=== PATIENT | female | born 2000 | race Caucasian/White ===

== ENCOUNTER → 2020-12-01 12:25 | Outpatient (CLI) | payer OTHER, SELFPAY ==
[2020-12-01 13:47] LABS: Absolute Lymphocyte Count 1.55 X10^3/uL (0.83-4.51); Absolute Neutrophil Count 6.3 X10^3/uL (2.0-7.7); Basophil# 0.02 X10^3/uL; Basophil% 0.2 % (0-1); Eosinophil# 0.01 X10^3/uL; Eosinophils% 0.1 % (0-5); Lymphocyte # 1.55 X10^3/ul (4.0); Lymphocyte % 18.4 % (19-41); Mean Corp Hgb Conc 33.3 g/dL (32-36); Mean Corpuscular Hgb 30.6 pg (27.0-32.0); Mean Corpuscular Volume 91.8 fL (81-99); Mean Platelet Vol. 11.6 fl (6.2-12.0); Monocyte# 0.52 X10^3/uL; Monocyte% 6.2 % (0-10); NRBC Flagged by Analyzer 0 % (0-5); Neutrophil # 6.29 X10^3/uL (2.7-7.7); Neutrophil % 74.9 % (47-70); Platelet Count 119 K/mm3 (150-450); RBC Distribution Width CV 12.5 % (11.6-14.6); RBC Distribution Width SD 41.8 fl (35.1-43.9); White Blood Count 8.4 K/mm3 (4.4-11.0)
[2020-12-01 14:49] LABS: HIV - WCH Non-Reactive (Nonreactive); Hepatitis B Surface Antigen Non-Reactive (Nonreactive); Hepatitis C Antibody Non-Reactive (Nonreactive); Rubella IgG Reactive (Nonreactive); Syphilis Antibodies Non-reactive
== END ==
PROVIDERS: PCP Nurse Practitioner Family; Referring Provider Student in an Organized Health Care Education/Training Program; Visit Provider Student in an Organized Health Care Education/Training Program
DX: Z34.81 Encounter for supervision of other normal pregnancy, first trimester (principal)
CPT/HCPCS: 85025; 86703; 86762; 86780; 86803; 87086; 87088; 87340

== ENCOUNTER → 2021-04-10 09:30 | Outpatient (CLI) | payer OTHER, MEDICAID, SELFPAY ==
[2021-04-10 10:35] LABS: Hematocrit 40.2 % (37-47); Mean Corp Hgb Conc 32.3 g/dL (32-36); Mean Corpuscular Hgb 31.9 pg (27.0-32.0); Mean Corpuscular Volume 98.5 fL (81-99); Mean Platelet Vol. 11.8 fl (6.2-12.0); POSITIVE COUNT YES; Platelet Count 79 K/mm3 (150-450); RBC Distribution Width CV 13.2 % (11.6-14.6); RBC Distribution Width SD 47.4 fl (35.1-43.9); Red Blood Count 4.08 M/mm3 (4.2-5.4); White Blood Count 7.1 K/mm3 (4.4-11.0)
[2021-04-10 10:40] LABS: Scan Indicated on CBC? Y/N YES- FLAGS NOTED
[2021-04-10 10:47] LABS: Vitamin B12 340 pg/mL (211-911)
[2021-04-10 11:27] LABS: Ferritin 11 ng/mL (8-252); Glucose Challenge Gest 1H 50g 72 mg/dL (70-140)
== END ==
LOC: WOBLAB 09:31
PROVIDERS: PCP Nurse Practitioner Family; Visit Provider Obstetrics & Gynecology
DX: Z34.82 Encounter for supervision of other normal pregnancy, second trimester (principal)
CPT/HCPCS: 36415; 82607; 82728; 82746; 82950; 85027

== ENCOUNTER 2021-05-31 17:47 | Emergency (ER) | payer OTHER, MEDICAID, SELFPAY ==
[2021-05-31 17:48] VITALS: BP 131/80; PULSE 89; RESP 18; TEMP 36.1; O2SAT 99; BMI 32.3
--- NOTE | 2021-05-31 18:11 | ED.VIS.LOWEX ---
HPI History of Present Illness Chief Complaint: Lower Extremity Injury Detail of Chief Complaint: Redness and discomfort no injury. Informant: patient Occured/Mechanism Mechanism/Context: No injury Onset/Context/Timing Onset: Days Context: Gradual Onset Timing: Continuous Current Severity: Mild Maximum Severity: Mild Associated Symptoms Associated Symptoms: Negative for Parasthesia, Weakness and Loss of Funtion Narrative Narrative: 21-year-old female 32 weeks. Complaining of a mild redness and discomfort left lower leg below the knee on the medial aspect. No prior history. No fall or trauma. No history of DVT or PE. Other than being she does not smoke, she has been on control, she is had no travel, surgery nor hospitalization. No hemoptysis or chest pain. No family history of clotting problems. She does shave her legs. The redness is mildly tender. She denies any fever or chills. Prior similar symptoms: No Recent Illness/Hospitalization: No PFSH PFSH Medical History (Updated 05/31/21 @ 18:[address] Manuel Garcia MD) DVT (deep venous thrombosis) Medical History no medical history no medical history Home Medications cephalexin 500 mg PO Q6H 7 Days #28 cap 05/31/21 [Rx Last Taken Unknown] Allergy/AdvReac Type Severity Reaction Status Date / Time No Known Allergies Allergy Verified 05/31/21 17:49 Social History Smoking Status: Never smoker ROS ROS ED ROS Narrative Denies. Review of Systems ROS Unobtainable: Denies due to encephalopathy Constitutional Constitutional ED: Denies chills or fever(s) Eyes Eyes: Denies change in vision ENT ENT ED: Denies ear pain Cardiovascular Cardiovascular: Denies chest pain Respiratory/Chest Respiratory/Chest: Denies cough or dyspnea Gastrointestinal Gastrointestinal: Denies abdominal pain Genitourinary Genitourinary ED: Denies dysuria Musculoskeletal Musculoskeletal: Denies myalgias Integumentary Reports rash Neurologic Neurologic: Denies headache(s) Psychiatric Psychiatric: Denies depression Endocrine Endocrinology: Denies polyuria Hematologic/Lymphatic Hematologic/Lymphatic: Denies easy bruising Allergic/Immunologic Allergic/Immunologic ED: Denies urticaria EXAM Physical Exam Narrative Exam Narrative: I am pleased female no acute distress vital signs stable afebrile. Pulse ox 9% on room air no signs hypoxia. HEENT exam unremarkable. Lungs clear to auscultation bilaterally. Heart regular rhythm no murmur. Abdomen soft nondistended normal bowel sounds no peritoneal signs. Gravid nontender uterus. Moving all 4 extremities. No edema no cords. Left lower leg below the knee medial lower leg shows an area about 2 inches x 2 inches of redness is mildly tender. This could be an early cellulitis. I do not think it is a cord. There is no edema. Both lower extremities are neurovascular intact. There is no lymphangitic streaking. There is no inguinal lymphadenopathy. Otherwise exam normal. Const Vital Signs: 05/31/21 17:48 Temperature 97 F L Temperature Source Temporal Pulse Rate 89 Respiratory Rate 18 Blood Pressure 131/80 H Blood Pressure Mean 97 Pulse Ox 99 Positive well nourished and well developed; Negative for obese, cachectic, contractures or unkempt General Appearance ED: well developed and NAD; Negative for unkempt, cachectic or contractures Nutritional Appearance: Negative for cachectic or obese HEENT Reports moist mucous membranes normocephalic and atraumatic Eyes PERRL Neck full ROM and supple Thyroid: Negative for tender Chest Wall inspection of chest normal and palpation of chest normal Resp normal respiratory effort and clear to auscultation bilaterally Cardio regular rate, regular rhythm, S1 normal heart sound, S2 normal heart sound and no murmurs GI non-tender, non-distended and no masses GI Narrative: Gravid nontender uterus. Auscultation: normoactive bowel sounds Palpation: soft; Negative for tender, guarding or rebound tenderness present Back/Spine no CVA tenderness Extremity normal to inspection Extremity Narrative: Except left leg below the knee proximal medial lower leg there is an area of redness approximately 2 inches x 2 inches. Mildly tender. No quarter edema. No lymphangitic streaking. No inguinal lymphadenopathy. This does appear to be a cellulitis. Neuro oriented x3 and moves all extremities Sensorium / Orientation: alert, oriented to person, oriented to place and oriented to time; Negative for orientation impaired, lethargic or stuporous Motor Exam: strength 5/5 throughout Psych mental status grossly normal Appearance: Negative for unkempt Skin no wounds Lesions: no lesions MDM MDM MDM Narrative Medical decision making narrative: Healthy female 32 weeks with left lower leg pain and redness. Clinically this is a very mild 2 inch x 2 inch cellulitis. I think is very unlikely this is a DVT or only risk factors for . Noninvasive study will be ordered for tomorrow when they are in-house. She will be started on Keflex 4 times a day. Follow-up with your PERSONAL CARER. Discharge Plan Triage Chief Complaint: Lower Extremity Injury ED Provider: Manuel Garcia Dx/Rx/DC Orders Clinical Impression: Cellulitis Instructions: Cellulitis Prescriptions: New cephalexin 500 mg capsule 500 mg PO Q6H 7 Days Qty: 28 RF: 0 Primary Care Provider: Kelsi Rosenthal NP Referrals: Kelsi Rosenthal NP, BEHAVIORAL INTERVENTION SPECIALIST-[facility] [Primary Care Provider] - As Needed Activity Restrictions/Additional Instructions: Keflex, the antibiotic, 1 pill 4 times a day till gone. Tylenol for pain. [facility] lab will call you tomorrow to set you up for noninvasive study. If you do not hear from them before noon call the ER. Tell them you are supposed to have an ultrasound of your left lower leg to be evaluated for possible blood clot. Most likely this is an early skin infection called cellulitis. Putting you on antibiotic. Follow-up with your PERSONAL CARER as needed. Disposition Disposition: Home, Self Care
[2021-05-31] MEDS: Cephalexin 250 MG Capsule 500 MG PO (18:20)
== END 2021-05-31 18:27 | disposition home or self-care (01) ==
LOC: ED 18:26
PROVIDERS: Emergency Provider Emergency Medicine; PCP Nurse Practitioner Family
DX: O98.813 Other maternal infectious and parasitic diseases complicating pregnancy, third trimester (principal); L03.116 Cellulitis of left lower limb; Z3A.32 32 weeks gestation of pregnancy
CPT/HCPCS: 99283

== ENCOUNTER → 2021-06-01 10:36 | Outpatient (CLI) | payer OTHER, MEDICAID, SELFPAY ==
--- NOTE | 2021-06-01 10:38 | VDLE_ITS ---
Reason For Study: Pain Procedure LEFT This is a venous duplex using B-mode, color GSV is normal. flow and spectral Doppler. CFV is compressible, spontaneous, phasic, Exam performed in department. competent, and demonstrates normal A preliminary report was called and/or faxed augmentation. to PCP: [facility] and OB-SECURITY COMPLIANCE SPECIALIST: Chacorta Mccabe. FV is compressible, spontaneous, phasic, Patient seen in ED 05/31/2021, scanned as competent and demonstrates normal next day exam. augmentation. POP V is compressible, spontaneous, phasic, competent and demonstrates normal augmentation. T/P Trunk is compressible. PTV is compressible. LT PerV is compressible. VL/Venous Duplex US, Unilateral Interpretation Summary There is no evidence of left lower extremity deep vein thrombosis. Left great s aphenous vein appears patent and compressible segmentally. Ordering Physician: Manuel Garcia Referring Physician: Kelsi Rosenthal Performed By: Unique Hong RVT
== END ==
PROVIDERS: PCP Nurse Practitioner Family; Referring Provider Emergency Medicine; Visit Provider Emergency Medicine
DX: O26.899 Other specified pregnancy related conditions, unspecified trimester (principal); M79.605 Pain in left leg; Z3A.00 Weeks of gestation of pregnancy not specified
CPT/HCPCS: 93971

== ENCOUNTER → 2021-06-18 16:03 | Outpatient (CLI) | payer OTHER, MEDICAID, SELFPAY ==
[2021-06-18 16:52] LABS: Hematocrit 38.6 % (37-47); Hemoglobin 12.5 g/dL (12.0-15.0); Mean Corp Hgb Conc 32.4 g/dL (32-36); Mean Corpuscular Hgb 31.3 pg (27.0-32.0); Mean Corpuscular Volume 96.7 fL (81-99); Mean Platelet Vol. 12.3 fl (6.2-12.0); POSITIVE COUNT YES; Platelet Count 75 K/mm3 (150-450); RBC Distribution Width CV 12.6 % (11.6-14.6); RBC Distribution Width SD 43.4 fl (35.1-43.9); Red Blood Count 3.99 M/mm3 (4.2-5.4); White Blood Count 7.5 K/mm3 (4.4-11.0)
[2021-06-18 17:17] LABS: Scan Indicated on CBC? Y/N YES- FLAGS NOTED
== END ==
PROVIDERS: PCP Nurse Practitioner Family; Visit Provider Student in an Organized Health Care Education/Training Program
DX: O99.113 Other diseases of the blood and blood-forming organs and certain disorders involving the immune mechanism complicating pregnancy, third trimester (principal); D69.6 Thrombocytopenia, unspecified; Z3A.00 Weeks of gestation of pregnancy not specified
CPT/HCPCS: 36415; 85027

== ENCOUNTER → 2021-06-26 | Outpatient (CLI) | payer OTHER, MEDICAID, SELFPAY | END | disposition home or self-care (01) | LOC: LABSPEC 12:20 | PROVIDERS: PCP Nurse Practitioner Family; Visit Provider Student in an Organized Health Care Education/Training Program | DX: Z36.85 Encounter for antenatal screening for Streptococcus B (principal) | CPT/HCPCS: 87077; 87081; 87186 ==

== ENCOUNTER 2021-07-18 01:25 | Inpatient (IN) | payer OTHER, MEDICAID, SELFPAY ==
[2021-07-18] VITALS (24 sets, daily range): BP systolic 112–147; BP diastolic 61–83; PULSE 69–101; RESP 14–18; TEMP 36.3–37.5; O2SAT 98–99; BMI 32.6
[2021-07-18] MEDS: Lactated Ringers 1,000 ML 50 ML IV (01:50)
--- NOTE | 2021-07-18 02:18 | HP.PCM.OB_ITS ---
HPI - General General Date of Admission: 07/18/21 HPI Narrative SARANYA CHEN, is a 21 F G1 @ 39 4/7 wga who presents with c/o her water breaking at 2240h on 07/17/21. issues: -LGA at 20wga - serial growth scans with 06/26/21 EFW 2996g ([id number]), 59th%, HC/AC 1.06 -Thrombocytopenia -Celiac disease Maternal Data Information RENE Calculator Estimated Delivery Date Method Current WG Current Estimate 07/21/21 Manual 39w 4d PFSH PFSH Medical History (Updated 07/18/21 @ 02:[address] Maria Del Carmen Simmons MD) Asthma Celiac disease Thrombocytopenia affecting Home Medications 1 tab PO/SL DAILY 07/18/21 [History Last Taken 07/17/21 08:00] Allergy/AdvReac Type Severity Reaction Status Date / Time No Known Allergies Allergy Verified 07/18/21 01:06 Family History (Updated 07/18/21 @ 02:[address] Maria Del Carmen Simmons MD) Mother Hypertension Surgical History (Updated 07/18/21 @ 02:[address] Maria Del Carmen Simmons MD) No history of previous surgery Social History Smoking Status: Never smoker History 1 Elective abortions Hx Para 0 Spontaneous abortions Hx # Term Pregnancies Ectopic pregnancies Hx # Pregnancies Multiple births # of living children NST FHR Rate Baby A Baseline: 130 Variability:: Moderate Accelerations:: 15 x 15 Decelerations:: None NST Reactive:: Yes FHR Category:: Category I Uterine Activity:: 3/10 Vital Signs Vital Signs Vital Signs: 07/18/21 01:11 07/18/21 01:12 Temperature 97.5 F L Temperature Source Temporal Pulse Rate 87 Blood Pressure 130/74 H BP Systolic 130 BP Diastolic 74 Pulse Ox 98 Weight Weight: 93.1 kg Body Mass Index (BMI) 32.6 Physical Exam Const alert, oriented x3 and no apparent distress HEENT normocephalic Resp normal respiratory effort, normal air movement and clear to auscultation bilaterally Cardio regular rate and regular rhythm GI normal to inspection, nondistended, normoactive bowel sounds, soft to palpation, non-tender and non-distended Inspection: gravid Narrative: /-3 moderate and posterior per MIGUEL Nath Labs Labs Labs: Blood Type A POSITIVE Antibody Screen NEGATIVE Hct 38.5 % (37-47) Hgb 13.0 g/dL (12.0-15.0) Syphilis Total Ab Non-reactive Rubella IgG Antibody Reactive (Nonreactive) Hep Bs Antigen Non-Reactive (Nonreactive) HIV 1&2 Antibody Non-Reactive (Nonreactive) C.trachomatis DNA (PCR) Negative (Negative) Glucose 1 Hr 50 gm 72 mg/dL (70-140) ACOG ANTEPARTUM RECORD - HISTORY AND PHYSICAL (07/18/2021) Name: SARANYA CHEN History of this : This is a 21 year old [id number] presents at 39 wks + 4 days gestation. OB Physician: Ana Kumar 's Physician: UNDECIDED ...................................................................... : 2000 Age: 21 Address: [address] [place] [address] Phone: H) [phone] (O) [phone] Insurance Carrier: [facility] [id number] Emergency Contact: ARIANA CHEN [phone] ...................................................................... Final RENE: 07/21/21 By Ultrasound: 6 weeks 6 days PARITY: (G-Total Pregnancies P-Fullterm,Premature,Induced AB,Spont AB, Ectopics, Multiple,Living) RENE CONFIRMATION: By LMP: 10/07/20 Final RENE: 07/21/21 OB PROBLEM LIST: 119 -> 79 --> 75 , s/p consult placed to Dr. 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 Illicit Drug Use - denies use of street drugs Sexual Activity - single sexual partner in the past, last active a couple months ago Residence - Lives with [facility] Place of - [place], [place] Hours Worked - 40 hours per week Spouse-Sig Other Name - Ervin Aouna Spouse-Sig Other Occupation - Stripper Machine Operator Spouse-Sig Other Phone No - [phone] (cell) PRIOR DELIVERY HISTORY DEL DATE GEST LAB WT LB WT OZ TYPE ANES LABOR TX ANTEPARTUM FLOW CHART VISIT GE RTC FU F F HI U U DATE WK MD WKS HT PN HR M SS BP ED WT HI GL D EF ST __ ____ ___ __ __ ___ __ __ __ ___ __ __ __ ___ __ 11 Nov 39 CM 1 39 V + + 124/74 0 207 - - 1 05 Nov 38 CM 4 38 V + + 110/76 0 207 - - 1 28 Oct 37 CM 1 37 V + + 132/80 sl 207 - - 1 30 -3 22 Oct 36 CM 1 36 + V + 102/80 sl 205 1+ - 14 Oct 35 CM 1 35 V + + 132/82 0 204 tr tr 17 May 31 JM 2 31 - + + 114/66 0 201 tr - 03 May 29 JM 2 29 - + + 110/70 0 199 tr - 06 Apr 29 JM 3 25 - + + 124/78 tr 202 - - 08 Mar 25 JM 4 21 - on + 122/82 0 201 tr - 10 Feb 17 CM 4 + ? 132/88 0 199 ne ne 13 January 13 CM 4 +U O 128/72 0 201 - - 13 Dec 9 CM 4 +U O 126/72 0 207 tr - ANTEPARTUM NOTE(S): Jul 16 2021: Jul 10 2021: Jul 02 2021: Jun 26 2021: cramping, pelvic pressure, GBS and LARC Jun 18 2021: May 22 2021: bed bugs? May 08 2021: Sono Today,Good FM,Periodic Fatigue Apr 10 2021: Mar 12 2021: see prog note Feb 12 2021: Jan 15 2021: Dec 16 2020: N/V, skin rash, kidney pain? COMPREHENSIVE ANTEPARTUM NOTE(S): Jul 16 2021: Saranya here for her 39 week PNV. FM and edema are good. Pt has no concerns today doing well. Medications and allergy's are up to date. CB Jul 16 2021: 39/2w. gTCP - s/p heme consult. Repeat cbc next week per pt request. Growth AGA. Plan for induction 07/27 - to be scheduled next week. F/u 1w. CM Jul 10 2021: Saranya her for her PNV. FM good. Edema check good, She would like her cervix checked today. CB Jul 10 2021: 38/3w. CE unchanged. Reports some days baby moves less than others. Discussed kick counts and precautions of when to call or come in. NST REACTIVE today. F/u 1w. CM Jul 02 2021: Reporting good FM. GBS POSITIVE 06/26/21. She has pre- registered. [facility] Jul 02 2021: 37/2w. GBS pos. Thrombocytopenia - discussed childbirth classes, hypnobirthing, strategies for epidural free . Reports some vulvar irritation. Neg BRYNN/wet prep.No signs of infection. F/u 1w. CM Jul 01 2021: H faxed to OB. tkg Jun 26 2021: Saranya is here for a BPP/PNV. Good FM. Sl edema present in ankles and fingers. Reports occasional cramping. Pelvic pressure consistent. No other concerns. GBS and LARC today, consent signed. LARC reviewed and declined. Jun 26 2021: 36/3w. Thrombocytopenia - stable at 79. S/p heme consult. Growth today for COVID in AGA, BPP 04/12. GBS done today. F/u 1w. CM Jun 18 2021: Saranya reporting good FM. States she was not very ill w/COVID Sx, FOB had a fever for 10 days. kb Jun 18 2021: 35/2w. Hx of COVID in , will get growth in next 1-2w. F/u 1w. CM Jun 02 2021: Saranya calling @ 33 wks reporting she tested POSITIVE for COVID today, Sx onset yesterday. Fiance also positive. See previous msg re: thrombocytopenia. Last appt 05/22 @ 31 wks. Reviewed temp precautions keeping fever < 100.4 w/use of Tylenol reg. strength every 4 hrs or extra strength every 6 hrs. Vit C 500 mg qd, Vit D 2,000 IU qd, Zn 40-50 mg qd, BASA 81 mg qd. Can take plain Mucinex for conge May 22 2021: Saranya is here for a PNV at 31 wks. Good FM. No edema present at this time. Denies complaints regarding . Has questions regarding bed bug prevention, her work currently has an outbreak and she has noticed bites on her. May 22 2021: 31 weeks, possible bedbugs exposed at work. Of bites on lower legs. To follow-up with PCP for treatment and having [place] man come to house for extermination. Sees PCP in [place]. Gestational thrombocytopenia, saw Dr Maximo Hsieh on 05/15/21 but I have no records, per patient states platelet clumping appears to be related to no other diagnosis made. No more appointments with Dr. Marsh May 08 2021: Saranya presents here today for Sono and PNV. Reports that she feels alittle itchy in her vulva/vaginal area and has always been sensitive to some soaps. I recommended trying OTC Monistat 5 or 7 Day treatment with verbalized understanding. Periodic fatigue which we discussed as normal at this point in . Good FM. ALESSIA May 08 2021: 29 weeks, growth ultrasound today AGA. Thrombocytopenia seen by Dr. Maximo Hsieh, initial blood work within normal limits. To see Dr. Maximo Hsieh again 05/15/21. Pending this visit we will continue with monthly CBCs requested, and treatment directed by Dr. Maximo Hsieh. JM Apr 10 2021: Saranya is here today for PNV. Patient states that she has been doing well, but does note some edema in ankles. Good FM. Constipation is not as bad when she uses Miralax. Medications and allergies are up to date. No complaints or concerns expressed today. She had 1 hr GTT , folate and ferritin Blood draw today. Apr 10 2021: 25 weeks, celiac disease for 1 hour GTT along with B12, folate, ferritin levels. Found today on CBC to have platelets previously 119 but today 79. Educated patient on results, patient declines any knowledge of platelet issues in the past. Patient is asymptomatic. Educated patient on results. Consult to hematology Dr. Maximo Hsieh for evaluation. Patient stated sarayan gage, all questions answ Mar 12 2021: Saranya is here today for visit. Patient states that she has been doing well, but does note some slight swelling, and lower leg cramps. Patient also states that she continues with constipation. She takes Miralax PRN and has tried Docusate Sodium in the past but states that makes her bloated and uncomfortable. Encouraged patient to increase her water/fluid intake, try to naturally incre Mar 12 2021: 21 weeks, anatomy ultrasound today with LGA EFW greater than the 90th percentile. FOB side of the family with 9, 10 and 11 pound babies. We will continue every 4 week growth ultrasounds. Educated the patient on formula feeding and risk for celiac disease for her baby in the future. With celiac disease will get 1 hour GTT with B12, folate, ferritin. JM Feb 12 2021: Saranya is here for PNV. Has not needed to use Zofran. Nausea has been subsiding. Is using Miralax as directed and working well. Thinks she may have started to feel FM. No edema present at this visit. Urine neg/neg. LSS Feb 12 2021: 17/2w visit. Feeling improved. Celiac disease - will add B12, folate, ferritin with glucola. Weight loss - plan for growth US. F/u 4w. Anatomy US. CM Jan 15 2021: educational materials given. Decliines genetics testing. Jan 15 2021: 13/2w visit. Still feeling nauseous - rx zofran. Constipation - start miralax daily. If needed ad MOM. F/u 4w. CM Jan 14 2021: TELEHEALTH NOB VISIT, 60 MINUTE DURATION. Saranya is a 20 year old with an RENE of 07/21/2021, current GA is 13 w 1 d. She resides with her fiance', Ervin Hammond, and she states that he is supportive. This is also Ervin's first baby. 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 Saranya states that she continues to have daily N/V, mostly 20-30 minute Dec 16 2020: Saranya is here for a PNV with SO. Pt continues to have N/V mostly in the morning, interested in trying prescription med's for nausea. Denies cramping/spotting. A few days ago pt states she felt back pain over her kidneys for the first 20 min's after waking up, advised to push fluids. Rash present on upper abdomen, hx of dry skin and eczema. No other concerns. packet completed. MK Dec 16 2020: 9w visit. Declines genetic/carrier screening. Brother born with small lung was slightly premature and was in [facility] nicu. Possibly from prematurity. No snf issues. No other family hx. F/u 4w. CM REVIEW OF SYSTEMS: GENERAL - Denies fever, or chills SKIN - Denies rash, new skin lesions, or change in moles EYES - Denies blurred vision, or change in visual acuity EARS - Denies ear pain, or difficulty hearing NOSE - Denies nasal congestion, discharge, or bleeding MOUTH - Denies sore throat, or difficulty swallowing NECK - Denies pain or swelling RESPIRATORY - Denies shortness of breath, cough, wheezing CARDIOVASCULAR - Denies palpitations, chest pain, orthopnea, PND, peripheral edema, syncope or claudication GASTROINTESTINAL - Denies nausea, vomiting, diarrhea, constipation, Denies abdominal pain, melena and or bright red blood GENITOURINARY - Denies dysuria, frequency of urination, urgency, or hesitancy MUSCULOSKELETAL - Denies joint or muscle pain, or back pain NEUROLOGICAL - Denies localized numbness, weakness, or tingling PSYCHIATRIC - Denies depression, anxiety, substance abuse or suicide attempts ENDOCRINE - Denies heat or cold intolerance, weight loss or gain, increasing thirst HEMATO-IMMUNOLOGIC - Denies easy bruising, bleeding, oral ulcerations or recurrent infections GENETICS SCREENING: Age 35+ years: No Thalassemia: No Neural Tube Defect: No Down Syndrome: No MARCIN-SACHS: No Sickle Cell Disease: No Hemophilia: No Musc. Dystrophy: No Cystic Fibrosis: No-declines screening [place] Chorea: No Mental Retardation: No Fragile X: No Other genetic: No Other defects: No SABs/still births: No Drugs since LMP: No Comments: Brother born prematurely INFECTION HISTORY: High risk AIDS: No High risk Hepatitis: No Exposed to TB: No Exposed to Herpes: No Rash/viral illness since LMP: No History of STD: No MENSTRUAL HISTORY: *Menses Amount/Duration: 7 daysMenses Regularity: RegularFrequency: monthlyMenarche (Age Onset): 9* PAST SUMMARY: PARITY: 1. Total Pregnancies............ 1 2. Full Term Pregnancies........ 0 3. Premature.................... 0 4. Abortions - Induced.......... 0 5. Abortions - Spontaneous...... 0 6. Ectopics..................... 0 7. Multiple Births.............. 0 8. Living Children.............. 0 PHYSICAL EXAMINATION General Appearence: 21 yo female in no acute distress Vital Signs: AF, VSS Heart: RRR without rubs or gallops Lungs: CTA x 2 Breasts: deferred Abdomen: gravid Pelvis: Cervix: Presentation: cephalic Station: Fetus: Size: AGA Movement: present Heart: present LAB TEST(S) ORDERED SINCE:10/24/20 07/01/2021 RULE OUT BETA STREP (GRP. B) 06/18/2021 CBC-COMPLETE BLOOD CNT NO DIFF 04/10/2021 VITAMIN B12 04/10/2021 GLUCOSE CHALLENGE GEST 1H 50G 04/10/2021 FOLATES, (FOLIC ACID) 04/10/2021 FERRITIN 04/10/2021 DIFFERENTIAL COMMENT 04/10/2021 CBC-COMPLETE BLOOD CNT NO DIFF 12/03/2020 CULTURE, URINE 12/01/2020 RUBELLA IGG 12/01/2020 T AND S-NO CHARGE W/PNP 12/01/2020 L509.8000 12/01/2020 HIV - [facility] 12/01/2020 HEPATITIS C ANTIBODY 12/01/2020 HEPATITIS B SURFACE ANTIGEN 12/01/2020 CBC W/DIFF, AUTOMATED == ==== Order Observation Description Value Ref_Range A* Site == ==== RULE OUT BETA S NOTE MENDES CBC-COMPLETE BL NOTE MENDES CBC-COMPLETE BL WBC 7.5 K/mm3 4.4-11.0 ML CBC-COMPLETE BL RBC 3.99 M/mm3 4.2-5.4 L ML CBC-COMPLETE BL HGB 12.5 g/dL 12.0-15.0 ML CBC-COMPLETE BL HCT 38.6 37-47 ML CBC-COMPLETE BL MCV 96.7 fL 81-99 ML CBC-COMPLETE BL MCH 31.3 pg 27.0-32.0 ML CBC-COMPLETE BL MCHC 32.4 g/dL 32-36 ML CBC-COMPLETE BL RDW CV 12.6 11.6-14.6 ML CBC-COMPLETE BL RDW SD 43.4 fl 35.1-43.9 ML CBC-COMPLETE BL PLT 75 K/mm3 150-450 L ML CBC-COMPLETE BL MPV 12.3 fl 6.2-12.0 H ML FOLATES, (FOLIC NOTE MENDES FOLATES, (FOLIC FOLATES 28.70 ng/mL 3.1-55.4 ML FERRITIN NOTE MENDES FERRITIN FERRITIN 11 ng/mL 8-252 ML GLUCOSE CHALLEN NOTE MENDES GLUCOSE CHALLEN GLU GEST 50G 1H 72 mg/dL 70-140 ML DIFFERENTIAL CO NOTE MENDES DIFFERENTIAL CO SMEAR COMMENT ML THROMBOCYTOPENIA VITAMIN B12 NOTE MENDES VITAMIN B12 VITAMIN B12 340 pg/mL 211-911 ML CBC-COMPLETE BL NOTE MENDES CBC-COMPLETE BL WBC 7.1 K/mm3 4.4-11.0 ML CBC-COMPLETE BL RBC 4.08 M/mm3 4.2-5.4 L ML CBC-COMPLETE BL HGB 13.0 g/dL 12.0-15.0 ML CBC-COMPLETE BL HCT 40.2 37-47 ML CBC-COMPLETE BL MCV 98.5 fL 81-99 ML CBC-COMPLETE BL MCH 31.9 pg 27.0-32.0 ML CBC-COMPLETE BL MCHC 32.3 g/dL 32-36 ML CBC-COMPLETE BL RDW CV 13.2 11.6-14.6 ML CBC-COMPLETE BL RDW SD 47.4 fl 35.1-43.9 H ML CBC-COMPLETE BL PLT 79 K/mm3 150-450 L ML CBC-COMPLETE BL MPV 11.8 fl 6.2-12.0 ML CULTURE, URINE NOTE MENDES HEPATITIS C ANT NOTE MENDES HEPATITIS C ANT HEPATITIS C AB Non-Reactive Nonreactive ML Non Reactive: < 0.8 Equivocal: >/= 0.8 to < 1.0 Reactive: >/= 1.0 The CDC recommends that a reactive/equivocal HCV antibody result be followed up by the HCV Nucleic Acid Amplification test ([id number]) HEPATITIS B DEBBY NOTE MENDES HEPATITIS B DEBBY HEP B SURF AG Non-Reactive Nonreactive ML HIV - [facility] NOTE MENDES HIV - [facility] HIV Non-Reactive Nonreactive ML L509.8000 NOTE MENDES L509.8000 SYPHILIS ABS Non-reactive ML RUBELLA IGG NOTE MENDES RUBELLA IGG RUBELLA IGG Reactive Nonreactive ML Antibody Results Interpretation of Immune Status Non Reactive Presumed Non-Immune Equivocal Equivocal Reactive Presumed Immune PN N [facility]~[address] [place], [address]~ T AND AB SCREEN GEL NEGATIVE ML CBC W/DIFF, AUT NOTE MENDES CBC W/DIFF, AUT WBC 8.4 K/mm3 4.4-11.0 ML CBC W/DIFF, AUT RBC 4.90 M/mm3 4.2-5.4 ML CBC W/DIFF, AUT HGB 15.0 g/dL 12.0-15.0 ML CBC W/DIFF, AUT HCT 45.0 37-47 ML CBC W/DIFF, AUT MCV 91.8 fL 81-99 ML CBC W/DIFF, AUT MCH 30.6 pg 27.0-32.0 ML CBC W/DIFF, AUT MCHC 33.3 g/dL 32-36 ML CBC W/DIFF, AUT RDW CV 12.5 11.6-14.6 ML CBC W/DIFF, AUT RDW SD 41.8 fl 35.1-43.9 ML CBC W/DIFF, AUT PLT 119 K/mm3 150-450 L ML CBC W/DIFF, AUT MPV 11.6 fl 6.2-12.0 ML CBC W/DIFF, AUT NEUT% 74.9 47-70 H ML CBC W/DIFF, AUT LY% 18.4 19-41 L ML CBC W/DIFF, AUT MONO% 6.2 0-10 ML CBC W/DIFF, AUT EO% 0.1 0-5 ML CBC W/DIFF, AUT BASO% 0.2 0-1 ML CBC W/DIFF, AUT IG% 0.200 0.0-0.9 ML IG% - Immature Granulocytes (promyelocytes, myelocytes and metamyelocytes) > 1% indicates that a LEFT SHIFT is Present. CBC W/DIFF, AUT ABSOLUTE NEUT 6.3 X10 3/uL 2.0-7.7 ML CBC W/DIFF, AUT ABSOLUTE LYMPH 1.55 X10 3/uL 0.83-4.51 ML CBC W/DIFF, AUT NUCLEATED RBC 0 0-5 ML Streptococcus agalactiae (B) Amount Growth Growth Streptococcus agalactiae (B): REACTION Ampicillin <=0.25 Penicillin G <=0.06 S Ceftriaxone <=0.12 S Clindamycin <=0.25 S Clindamycin.induced NEG Linezolid <=2 S Vancomycin 0.5 S Urine Culture ORGANISM 1: Presumptive Lactobacillus sp. [place] Count 11,000-25,000 A POSITIVE == ==== Assessment & Plan (1) SROM (spontaneous rupture of membranes): PLAN: SROM in latent labor, primigravida (2) 39 weeks gestation of : PLAN: PCN for GBS GC/CT (3) Thrombocytopenia affecting : PLAN: Will obtain MFM consultation
[2021-07-18 02:21] LABS: Absolute Lymphocyte Count 1.72 X10^3/uL (0.83-4.51); Absolute Neutrophil Count 8.9 X10^3/uL (2.0-7.7); Basophil# 0.01 X10^3/uL; Basophil% 0.1 % (0-1); Eosinophil# 0.02 X10^3/uL; Eosinophils% 0.2 % (0-5); Hematocrit 38.5 % (37-47); Lymphocyte # 1.72 X10^3/ul (0.83-4.51); Lymphocyte % 15.1 % (19-41); Mean Corp Hgb Conc 33.8 g/dL (32-36); Mean Corpuscular Hgb 31.7 pg (27.0-32.0); Mean Corpuscular Volume 93.9 fL (81-99); Mean Platelet Vol. 13.4 fl (6.2-12.0); Monocyte# 0.73 X10^3/uL; Monocyte% 6.4 % (0-10); NRBC Flagged by Analyzer 0 % (0-5); Neutrophil # 8.86 X10^3/uL (2.7-7.7); Neutrophil % 77.8 % (47-70); POSITIVE COUNT YES; Platelet Count 66 K/mm3 (150-450); RBC Distribution Width CV 13.3 % (11.6-14.6); RBC Distribution Width SD 45.6 fl (35.1-43.9); White Blood Count 11.4 K/mm3 (4.4-11.0)
[2021-07-18 02:28] LABS: Differential Indicated SCAN CRITERIA MET
[2021-07-18 02:45] LABS: Differential Comment SCANNED; Platelet Estimate MOD DEC (ADEQ)
[2021-07-18] MEDS: Acetaminophen 500 MG Tablet PO (02:54)
[2021-07-18] MEDS: Ondansetron 4 MG/2 ML Vial IV (03:38)
[2021-07-18] MEDS: Penicillin G 3,000,000 Units 50 ML 100 UNITS IV (06:19)
[2021-07-18 07:05] LABS: Chlamydia Trachomatis by PCR Negative (Negative); Neisserai gonorrhoeae by PCR Negative (Negative); Probe Check PASS; Sample Adequacy Control PASS; Specimen Processing Control PASS
[2021-07-18] MEDS: Oxytocin 30 units/NS 500 ml 30 UNITS/500 ML IV.SOLN 334 UNITS IV (07:25)
--- NOTE | 2021-07-18 07:55 | EX.PCM.OBRPT ---
Assessment & Plan (1) Thrombocytopenia affecting : (2) 39 weeks gestation of : (3) (spontaneous vaginal delivery): Maternal Data Information RENE Calculator Estimated Delivery Date Method Current WG Current Estimate 07/21/21 Manual 39w 4d Vaginal Delivery Maternal Presentation Maternal Presentation: Spontaneous Rupture of Membranes Operative Information Date of Procedure: 07/18/21 Pre-Operative Diagnosis: 39 4/7 weeks gestation Post-Operative Diagnosis: 39 4/7 weeks gestation Surgery / Procedure Performed: Spontaneous Vaginal Delivery Type of Anesthesia: None Estimated Blood Loss: 250 ml Time of Delivery: 07:21 Findings Description of Procedure: Patient pushed to deliver a [vigorous] [female] . Infant mouth and nares were bulb suctioned. The was placed on the maternal abdomen and further attended by nursery personnel. The cord was doubly clamped and cut at [5] minutes of life. The placenta delivered spontaneously and appeared intact on inspection. A first-degree perineal laceration with vaginal extension was repaired using 3-0 Vicryl Rapide following injection of 1% lidocaine without epinephrine. Presentation: Vertex Time of Membrane Rupture: 2240h Amniotic Fluid Description: Clear Placental Delivery Description: Spontaneous Placenta Disposition: [facility] Cord Vessel Description: 3 Vessels Cord Entanglement: Around neck x 1, loose Infant A Gender: Female (1 minute): 8 (5 minute): 9 Delayed Cord Clamping: Yes Post Vaginal Delivery Medications Given After Delivery: IV Pitocin Episiotomy Description: None Laceration: Midline, Perineal Extension/lac and 1st degree Complication Complications: None
[2021-07-18] MEDS: Acetaminophen 500 MG Tablet 1000 MG PO (08:43)
[2021-07-18] MEDS: Ibuprofen 600 MG Tablet PO ×3 (08:44→21:20)
[2021-07-18] MEDS: Hydrocortisone 2.5% Crm 1 APPLIC TOPICAL (08:44)
[2021-07-18] MEDS: Benzocaine/Lanolin/Aloe Vera 1 SPRAY EACH TOPICAL (08:45)
[2021-07-18] MEDS: Prenatal Vits Tablet 1 TABLET PO (15:05)
[2021-07-19 05:08] VITALS: BP 134/69; PULSE 79; RESP 16; TEMP 36.6; O2SAT 97; O2SAT 98
[2021-07-19 05:09] VITALS: BP 134/69; PULSE 81
[2021-07-19] MEDS: Ibuprofen 600 MG Tablet PO (05:14)
[2021-07-19 05:15] LABS: Hemoglobin 12.4 g/dL (12.0-15.0); Mean Corp Hgb Conc 33.5 g/dL (32-36); Mean Corpuscular Hgb 31.8 pg (27.0-32.0); Mean Corpuscular Volume 94.9 fL (81-99); Mean Platelet Vol. 12.7 fl (6.2-12.0); POSITIVE COUNT YES; Platelet Count 70 K/mm3 (150-450); RBC Distribution Width CV 13.6 % (11.6-14.6); RBC Distribution Width SD 46.9 fl (35.1-43.9)
[2021-07-19 07:39] VITALS: BP 126/80; PULSE 69
[2021-07-19 07:43] VITALS: BP 126/80; PULSE 69; RESP 18; TEMP 37.1
[2021-07-19] MEDS: Senna/Docusate Sodium 1 Tablet PO (07:51)
[2021-07-19] MEDS: 0.9% Saline Lock 10 ML Syringe IV (07:52)
[2021-07-19] MEDS: Acetaminophen 500 MG Tablet 1000 MG PO (10:30)
--- NOTE | 2021-07-19 10:33 | PCM.DC ---
Discharge Instructions Diet Discharge Diet: No restrictions Activity Discharge Activity: Return to Normal Activity May resume sexual activity in: 6 weeks Dressing / Incision Call your doctor if you observe: Fever of 101 or Higher, Using more than 1 pad per hour, Shortness of breath, Chest pain, Calf discomfort, Uncontrolled pain and - (Persistent or severe headache) Follow Up Care Please Follow Up With: Ana Mccabe DO When: 3 weeks for telehealth follow up 6 weeks for visit Test Results: Test results from this visit will be discussed in further detail at your follow-up appointment, if applicable. Discharge Plan Admission Admit Date/Time: 07/18/21 01:25 Primary Reason for Your Visit: Vaginal delivery Attending Provider: Maria Del Carmen Cat Primary Care Provider: Kelsi Rosenthal NP Instructions Patient Instructions: Depression Discharge Orders/Prescriptions Prescriptions: New ibuprofen 600 mg Tablet 800 mg PO Q8H PRN PRN (Reason: Pain Score 1-3) Qty: 30 RF: 0 Continued 1 tab PO/SL DAILY RF: 0 Referrals / Follow Up: Kelsi Rosenthal NP, [employer] UNDERWRITER-C [Primary Care Provider] - Disposition Disposition (needs filled in before D/C Order can be placed): Home, Self Care
--- NOTE | 2021-07-19 10:50 | PCM.PN.OB ---
Subjective Subjective No issues overnight. She is sore, but it is manageable with Tylenol, ibuprofen. Denies heavy lochia or clots. She is formula feeding. Denies vision changes. Reports mild headache, she attributes this to lack of sleep. Objective Data Objective Data Vital Signs: Vital Signs Temp Pulse Resp BP Pulse Ox 98.8 F 69 18 126/80 H 98 07/19/21 07:43 07/19/21 07:43 07/19/21 07:43 07/19/21 07:43 07/19/21 05:08 Oxygen Delivery Method Room Air Weight: 93.1 kg Body Mass Index (BMI) 32.6 Intake & Output: Intake and Output for Last 24 Hours 07/17/21 07/18/21 07/19/21 23:59 23:59 23:59 Intake Total 934.17 / 934.17 Output Total 300 / 300 Balance 634.17 / 634.17 Lab / Micro Data Result Diagrams: 07/19/21 05:07 Labs: Laboratory Results - last 24 hr 07/19/21 05:07: WBC 13.0 H, RBC 3.90 L, Hgb 12.4, Hct 37.0, MCV 94.9, MCH 31.8, MCHC 33.5, RDW Std Deviation 46.9 H, RDW Coeff of Fredy 13.6, Plt Count 70 L, MPV 12.7 H Micro: Microbiology 07/18/21 01:50 Nasal Secretion SARS-CoV-2 Antigen (Rapid) - Final Physical Exam Const alert, oriented x3 and no apparent distress General Appearance: cooperative and comfortable HEENT normocephalic Resp normal respiratory effort Cardio regular rate, regular rhythm, S1 normal heart sound and S2 normal heart sound Uterus Palpation: other OB Fundus firm and nontender Extremity no calf tenderness and no pedal edema Assessment & Plan (1) (spontaneous vaginal delivery): PLAN: PPD#1 s/p doing well. Rh positive d/c home today (2) Thrombocytopenia affecting : PLAN: Stable, plt 66->70 Repeat levels at follow up
== END 2021-07-19 14:05 | disposition home or self-care (01) | DRG 807 ==
LOC: WPOUT 01:30 → WP 01:30
PROVIDERS: Admitting Provider Obstetrics & Gynecology; PCP Nurse Practitioner Family; Referring Provider Obstetrics & Gynecology; Visit Provider Obstetrics & Gynecology
DX: O99.12 Other diseases of the blood and blood-forming organs and certain disorders involving the immune mechanism complicating childbirth (principal); Z37.0 Single live birth; D69.6 Thrombocytopenia, unspecified; Z3A.39 39 weeks gestation of pregnancy; O69.81X0 Labor and delivery complicated by cord around neck, without compression, not applicable or unspecified; O70.0 First degree perineal laceration during delivery
CPT/HCPCS: 59025; 59050; 76815; 85025; 85027; 86850; 86900; 86901; 86920; 87426; 87491; 87591; 99218; J7120; A4216; G0378; J2405

== ENCOUNTER 2021-07-27 19:10 | Outpatient (CLI) | payer OTHER, MEDICAID, SELFPAY ==
--- NOTE | 2021-07-27 19:08 | ED.RN ---
PT WAS NOT SEEN IN ED, SENT IMMEDIATELY TO OB FOR HTN.
[2021-07-27 19:25] VITALS: O2SAT 100
[2021-07-27 19:26] VITALS: BP 134/87; PULSE 83; TEMP 36.4
[2021-07-27 19:32] VITALS: BMI 29.7
[2021-07-27 19:41] VITALS: BP 118/75; PULSE 74
--- NOTE | 2021-07-27 20:07 | CT_ITS ---
STUDY: CTA CHEST REASON FOR EXAM: Female, 21 years old. chest tightness RADIATION DOSAGE (If Supplied By Facility): CTDIvol = ( 13.85 ) mGy, DLP = ( 441.14 ) mGycm TECHNIQUE: The examination was performed with the intravenous administration of IV 100mL Isovue-300. Post-processing of the angiographic images was performed, with multiplanar reformation and 3D reconstruction. Individualized dose optimization techniques were used for this CT. COMPARISON: None. FINDINGS: Normal enhancement of the main pulmonary artery and right and left pulmonary arteries. Normal enhancement of the bilateral peripheral pulmonary arteries. There is no demonstrated pulmonary embolism. Normal thoracic aorta and visualized great vessels. There is no demonstrated aortic dissection. Normal heart and pericardium. Normal mediastinum. Tiny calcified right hilar nodes. Normal visualized trachea and bronchi. The lungs are well expanded. Normal pulmonary parenchyma. Tiny calcified granuloma in the right upper lobe Normal pleura. Normal chest wall structures. Normal osseous structures. Normal visualized upper abdomen. CT/CTA Chest W/WO Contrast IMPRESSION: No acute abnormalities within the thoracic cavity.. No evidence for pulmonary embolus. Old granulomatous disease in the right upper lobe Electronically Signed: Bijan Joe MD at 22:02 EST , Service support ,
[2021-07-27] MEDS: 0.9% Saline Lock 10 ML Syringe IV (20:22)
[2021-07-27 20:35] LABS: Absolute Lymphocyte Count 1.96 X10^3/uL (0.83-4.51); Absolute Neutrophil Count 4.1 X10^3/uL (2.0-7.7); Basophil# 0.03 X10^3/uL; Basophil% 0.5 % (0-1); Eosinophil# 0.06 X10^3/uL; Eosinophils% 0.9 % (0-5); Hematocrit 42.3 % (37-47); Hemoglobin 13.7 g/dL (12.0-15.0); Lymphocyte # 1.96 X10^3/ul (0.83-4.51); Lymphocyte % 29.7 % (19-41); Mean Corp Hgb Conc 32.4 g/dL (32-36); Mean Corpuscular Hgb 30.9 pg (27.0-32.0); Mean Corpuscular Volume 95.3 fL (81-99); Monocyte# 0.45 X10^3/uL; Monocyte% 6.8 % (0-10); NRBC Flagged by Analyzer 0 % (0-5); Neutrophil # 4.07 X10^3/uL (2.7-7.7); Neutrophil % 61.5 % (47-70); Platelet Count 143 K/mm3 (150-450); RBC Distribution Width CV 12.8 % (11.6-14.6); RBC Distribution Width SD 44.9 fl (35.1-43.9); Red Blood Count 4.44 M/mm3 (4.2-5.4); White Blood Count 6.6 K/mm3 (4.4-11.0)
[2021-07-27 20:53] LABS: ALB/GLOB Ratio 0.8 RATIO (0.9-2.4); AST(SGOT) 12 U/L (15-37); Alanine Aminotransfer ALT/SGPT 21 U/L (13-56); Albumin, Serum 3.1 g/dL (3.2-5.0); Alkaline Phosphatase 90 U/L (45-117); Anion Gap 5 (5-15); BUN 15 mg/dL (7-18); BUN/Creat Ratio 20.2 RATIO (10-20); Calcium,Total 9.1 mg/dL (8.5-10.1); Chloride 108 mmol/L (98-107); Creatinine, Serum 0.74 mg/dL (0.55-1.02); EST Glomerular Filtration Rate 103 mL/min (>60); Est Glom Filt Rate - Afr Amer 124 mL/min (>60); Estimated Creatinine Clearance 110.69 ml/min; Globulin 3.8 g/dL (2.2-4.2); Glucose 79 mg/dL (74-106); LDH 200 U/L (84-246); Potassium 3.6 mmol/L (3.5-5.1); Protein, Total 6.9 g/dL (6.4-8.2); Sodium Level 139 mmol/L (136-145)
[2021-07-27 21:06] LABS: BNP,B-Type NATRIURETIC PEPTIDE 16.4 pg/mL (0-100)
[2021-07-27 21:21] LABS: Bacteria 0 SEEN /hpf (None Seen); Mucous, Urine 0 SEEN /hpf (<or=2+); Red Blood Cells-Urine 0 SEEN /hpf (0-5); Squamous Epithelial Cells - UA 0 SEEN /hpf (5-10); White Blood Cells 0 SEEN /hpf (0-5)
[2021-07-27 21:23] LABS: Color, Urine Yellow (Yellow); Glucose, Dipstick Normal (Normal); Ketone-Dipstick Negative (Negative); Leukocyte Esterase-Dipstick Negative /ul (Negative); Nitrite-Dipstick Negative (Negative); Occult Blood-Urine 10 /ul (Negative); Protein-Dipstick Negative (Negative); Urine Bilirubin Dipstick Negative (Negative); Urine Clarity Clear (Clear); Urine Urobilinogen Normal (Normal)
[2021-07-27 21:47] LABS: Protein, Urine (Random) < 6.0 mg/dL (<11.9)
[2021-07-27 22:08] VITALS: BP 120/73; PULSE 75
--- NOTE | 2021-07-27 22:40 | PCM.PN.BLA ---
Progress Note 21-year-old day 10 presenting with several symptoms. Patient states that she has had dyspnea, some chest tightness, mild headache since the day after delivery. There has been no change in symptoms, but persistence. Patient called her family doctor today who advised her to go to the emergency room. Reports 1 out of 10 headache that is frontal. Declines Tylenol. Reports shortness of breath and some chest tightness that mostly is at activity, not all the time. This is not changed or worsened over time. No orthopnea. No cough, fevers or chills, no sputum production. Reports that edema in both legs and feet has resolved. She states she is getting 2 to 3 hours of sleep at a time, formula feeding. Also reports vision that is not as clear as usual. 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 Vitals Blood pressure 120/73, pulse 75, O2 saturation 100% on room air, afebrile General: Patient is no acute distress seated on couch HEENT: Normal cephalic/atraumatic, PERRLA Cardiac: Regular rate and rhythm, no murmurs/rubs/gallops Lungs: Clear to auscultation bilaterally, no wheezes, rhonchi Abdomen: Soft, nontender Extremities: No edema Neuro: Cranial nerves II through XII grossly intact, patellar reflexes 2/4 bilaterally Laboratory results: CBC within normal limits. Thrombocytopenia resolved. CMP within normal limits BNP within normal limits Protein creatinine ratio not calculable CT angio of chest: Negative for PE. Old granulomatous disease noted Assessment/plan: 21-year-old day 10 presenting with several vague symptoms. Work-up at this time negative for pulmonary embolism. No evidence of peripartum cardiomyopathy, BNP within normal limits and cardiac/resp exam normal. No evidence of preeclampsia as blood pressures are within normal limits as is laboratory work. Thrombocytopenia has resolved to normal limits. Patient is comfortable in room, not dyspneic with discussion, 100% oxygen saturation on room air. Not anemic. No acute issues found at this time. Consider optometry appointment for vision in the next couple weeks if not improved. Will consider cardiology follow-up outpatient if symptoms persist. Plan for in person follow-up early next week unless symptoms worsen or change in the interim. Reviewed signs and symptoms of when to return to ER. Had long discussion with patient and her at room, all questions answered. Discharge home.
== END 2021-07-27 22:50 | disposition home or self-care (01) ==
LOC: WPOUT 19:16 → WP 19:16
PROVIDERS: PCP Nurse Practitioner Family; Visit Provider Student in an Organized Health Care Education/Training Program
DX: O90.89 Other complications of the puerperium, not elsewhere classified (principal); R06.00 Dyspnea, unspecified; R51.9 Headache, unspecified; R07.89 Other chest pain
CPT/HCPCS: 36415; 71275; 80053; 81001; 82570; 83615; 83880; 84156; 85025; 87426; 99218; A4216; G0378

== ENCOUNTER → 2021-08-27 | Outpatient (CLI) | payer OTHER, MEDICAID, SELFPAY | END | disposition home or self-care (01) | PROVIDERS: PCP Nurse Practitioner Family; Visit Provider Student in an Organized Health Care Education/Training Program | DX: N76.0 Acute vaginitis (principal) ==

== ENCOUNTER 2021-12-11 14:18 | Outpatient (CLI) | payer OTHER, MEDICAID, SELFPAY ==
--- NOTE | 2021-12-11 14:20 | US_ITS ---
STUDY: ULTRASOUND BREAST - LEFT REASON FOR EXAM: Female, 21 years old. Left breast pain. TECHNIQUE: Axial and longitudinal images of the LEFT breast were performed with a high resolution ultrasound transducer. # OF IMAGES: 58 COMPARISON: None. FINDINGS: LEFT Breast: The upper outer quadrant and axillary region of the left breast were examined with ultrasound. There is dense fibroglandular tissue. No sonographic abnormality is seen. US/Breast Limited Unilateral IMPRESSION: No sonographic abnormality is seen. ASSESSMENT CATEGORY: BIRADS Category 1: Negative. A letter regarding these results will be sent to the patient by the facility within 30 days. Electronically Signed: Anuel Mcneil MD at 11:14 EDT ,
== END 2021-12-11 23:59 | disposition home or self-care (01) ==
LOC: OPUS 14:19
PROVIDERS: PCP Nurse Practitioner Family; Visit Provider Student in an Organized Health Care Education/Training Program
DX: R10.11 Right upper quadrant pain (principal); N64.4 Mastodynia
CPT/HCPCS: 76642

== ENCOUNTER 2021-12-14 09:09 | Outpatient (CLI) | payer OTHER, MEDICAID, SELFPAY ==
--- NOTE | 2021-12-14 09:16 | US_ITS ---
STUDY: ABDOMINAL ULTRASOUND - RIGHT UPPER QUADRANT REASON FOR VISIT: Female, 21 years old RUQ PAIN TECHNIQUE: Ultrasound evaluation of the right upper quadrant was performed with real-time and static nicholson-scale imaging. TECHNICAL QUALITY: Adequate. COMPARISON: None. FINDINGS: Liver: The liver measures 17.6 cm. There is normal echogenicity of the liver. The bile ducts are within normal limits. There is hepatic color flow. The direction of portal flow is hepatopetal. There is no demonstrated mass lesion. Gallbladder: Normal distended gallbladder. The gallbladder wall measures 1 mm. There is a negative sonographic Duque''s sign. There is no pericholecystic fluid. There are no gallstones. Common Bile Duct (C.B.D.): The common bile duct measures 4 mm. Pancreas: Normal size of the head, body and tail of the pancreas. There is normal echogenicity of the pancreas. There is no demonstrated pancreatic mass or cyst. Right Kidney: Normal size of the right kidney. The right kidney measures 11.5 cm x 4.8 cm x 3.2 cm. Normal renal cortex. The right cortex measures 1.1 cm. There is no demonstrated renal mass or cyst. There is no right hydronephrosis. US/Abdomen Limited IMPRESSION: Normal right upper quadrant ultrasound examination. Electronically Signed: Anuel Mcneil MD at 14:55 EDT ,
== END 2021-12-14 23:59 | disposition home or self-care (01) ==
LOC: US 09:13
PROVIDERS: PCP Nurse Practitioner Family; Referring Provider Student in an Organized Health Care Education/Training Program; Visit Provider Student in an Organized Health Care Education/Training Program
DX: R10.11 Right upper quadrant pain (principal); N64.4 Mastodynia
CPT/HCPCS: 76705

== ENCOUNTER → 2022-09-03 | Outpatient (CLI) | payer OTHER, SELFPAY ==
[2022-09-03 17:00] LABS: Follicle Stimulating Hormone 1.9 mIU/mL; Luteinizing Hormone 1.4 mIU/mL; Prolactin 6.4 ng/mL; T4 Free Direct 1.04 ng/dL (0.76-1.46); Thyroid Stim Hormone (TSH) 0.99 uIU/mL (0.358-3.74)
[2022-09-10 09:08] LABS: Testosterone, % Free 1.59 % (0.50-2.80); Testosterone, Free 0.06 ng/dL (0.10-0.85); Testosterone, Total 4 ng/dL (13-71)
[2022-09-10 18:21] LABS: HPV Reflexed? NOT INDICATED
== END | disposition home or self-care (01) ==
LOC: WOBLAB 15:46
PROVIDERS: PCP Nurse Practitioner Family; Visit Provider Student in an Organized Health Care Education/Training Program
DX: N94.6 Dysmenorrhea, unspecified (principal); Z12.4 Encounter for screening for malignant neoplasm of cervix
CPT/HCPCS: 36415; 82627; 82670; 83001; 83002; 84144; 84146; 84402; 84403; 84439; 84443; 88175; 82626; G0145

== ENCOUNTER → 2022-10-11 | Outpatient (CLI) | payer OTHER, SELFPAY ==
[2022-10-11 15:32] LABS: Absolute Lymphocyte Count 1.51 X10^3/uL (0.83-4.51); Absolute Neutrophil Count 5.6 X10^3/uL (2.0-7.7); Basophil# 0.02 X10^3/uL; Basophil% 0.3 % (0-1); Eosinophil# 0.02 X10^3/uL; Eosinophils% 0.3 % (0-5); Hemoglobin 14.2 g/dL (12.0-15.0); Lymphocyte # 1.51 X10^3/ul (0.83-4.51); Lymphocyte % 19.6 % (19-41); Mean Corp Hgb Conc 33.8 g/dL (32-36); Mean Corpuscular Hgb 30.4 pg (27.0-32.0); Mean Corpuscular Volume 89.9 fL (81-99); Mean Platelet Vol. 11.7 fl (6.2-12.0); Monocyte# 0.52 X10^3/uL; Monocyte% 6.7 % (0-10); NRBC Flagged by Analyzer 0 % (0-5); Neutrophil # 5.62 X10^3/uL (2.7-7.7); Neutrophil % 72.8 % (47-70); Platelet Count 104 K/mm3 (150-450); RBC Distribution Width CV 12.4 % (11.6-14.6); RBC Distribution Width SD 40.3 fl (35.1-43.9); Red Blood Count 4.67 M/mm3 (4.2-5.4); White Blood Count 7.7 K/mm3 (4.4-11.0)
[2022-10-11 18:09] LABS: HIV - WCH Non-Reactive (Nonreactive); Hepatitis B Surface Antigen Non-Reactive (Nonreactive); Hepatitis C Antibody Non-Reactive (Nonreactive); Rubella IgG Reactive (Nonreactive); Syphilis Antibodies Non-reactive
[2022-10-13 09:57] LABS: V-Zoster IgG (Immunity) 604 index (Immune >165)
== END | disposition home or self-care (01) ==
PROVIDERS: PCP Nurse Practitioner Family; Visit Provider Student in an Organized Health Care Education/Training Program
DX: Z34.81 Encounter for supervision of other normal pregnancy, first trimester (principal)
CPT/HCPCS: 36415; 85025; 86703; 86762; 86780; 86787; 86803; 87086; 87088; 87340

== ENCOUNTER → 2023-02-02 | Outpatient (CLI) | payer OTHER, SELFPAY ==
[2023-02-02 17:15] LABS: Absolute Lymphocyte Count 1.32 X10^3/uL (0.83-4.51); Absolute Neutrophil Count 7.5 X10^3/uL (2.0-7.7); Basophil# 0.03 X10^3/uL; Basophil% 0.3 % (0-1); Eosinophil# 0.16 X10^3/uL; Eosinophils% 1.7 % (0-5); Hematocrit 37.4 % (37-47); Hemoglobin 12.5 g/dL (12.0-15.0); Lymphocyte # 1.32 X10^3/ul (0.83-4.51); Mean Corp Hgb Conc 33.4 g/dL (32-36); Mean Corpuscular Hgb 31.8 pg (27.0-32.0); Mean Corpuscular Volume 95.2 fL (81-99); Mean Platelet Vol. 11.7 fl (6.2-12.0); Monocyte# 0.41 X10^3/uL; Monocyte% 4.3 % (0-10); NRBC Flagged by Analyzer 0 % (0-5); Neutrophil # 7.48 X10^3/uL (2.7-7.7); Neutrophil % 79.3 % (47-70); POSITIVE COUNT YES; Platelet Count 87 K/mm3 (150-450); RBC Distribution Width CV 12.9 % (11.6-14.6); RBC Distribution Width SD 45.1 fl (35.1-43.9); Red Blood Count 3.93 M/mm3 (4.2-5.4); White Blood Count 9.4 K/mm3 (4.4-11.0)
[2023-02-02 18:08] LABS: Ferritin 7 ng/mL (8-252); Glucose Challenge Gest 1H 50g 141 mg/dL (70-140); Thyroid Stim Hormone (TSH) 0.51 uIU/mL (0.358-3.74)
[2023-02-02 18:18] LABS: Syphilis Antibodies Non-reactive; Vitamin B12 222 pg/mL (211-911); Vitamin D,25 Hydroxy 40.3 ng/mL
== END | disposition home or self-care (01) ==
PROVIDERS: PCP Nurse Practitioner Family; Visit Provider Student in an Organized Health Care Education/Training Program
DX: Z34.82 Encounter for supervision of other normal pregnancy, second trimester (principal)
CPT/HCPCS: 36415; 82306; 82607; 82728; 82950; 84443; 85025; 86780

== ENCOUNTER → 2023-02-09 | Outpatient (CLI) | payer OTHER, SELFPAY ==
[2023-02-09 09:42] LABS: Glucose GTT-Gestation. Fasting 80 mg/dL (<105)
[2023-02-09 10:54] LABS: Glucose GTT-Gestational 1 Hr 152 mg/dL (<190)
[2023-02-09 12:21] LABS: Glucose GTT-Gestational 2 Hr 117 mg/dL (<165)
[2023-02-09 12:21] LABS: Glucose GTT-Gestational 3 Hr 109 L (<145)
== END | disposition home or self-care (01) ==
LOC: WOBLAB 08:42
PROVIDERS: PCP Nurse Practitioner Family; Visit Provider Student in an Organized Health Care Education/Training Program
DX: O99.810 Abnormal glucose complicating pregnancy (principal); Z3A.00 Weeks of gestation of pregnancy not specified
CPT/HCPCS: 36415; 82951; 82952

== ENCOUNTER 2023-05-31 15:35 | Emergency (ER) | payer OTHER, SELFPAY ==
[2023-05-31] VITALS (14 sets, daily range): BP systolic 114–140; BP diastolic 64–90; PULSE 72–85; RESP 14–21; TEMP 36.6; O2SAT 98–100; BMI 30.2
--- NOTE | 2023-05-31 15:45 | EDS_ITS ---
HPI History of Present Illness Chief Complaint: Syncope [facility] Medical History Asthma Celiac disease Thrombocytopenia affecting Thyroid nodule Home Medications prenat.vits,chris,[id number] 1 tab PO DAILY 01/10/23 [History Last Taken Unknown] ferrous sulfate 325 mg (65 mg iron) tablet 325 mg PO Q OTHER DAY 02/23/23 [History Last Taken Unknown] folic acid 1 mg tablet 1 mg PO DAILY 03/23/23 [History Last Taken Unknown] Allergy/AdvReac Type Severity Reaction Status Date / Time No Known Allergies Allergy Verified 05/31/23 15:39 Family History Mother Hypertension Father Diabetes Grandmother CVA (cerebral vascular accident) maternal Myocardial infarction maternal Hypertension maternal Grandfather Hypertension maternal Cardiac arrhythmia maternal Grandfather COPD (chronic obstructive pulmonary disease) paternal Thyroid disorder paternal Cancer skin - removed (unknown if melanoma) Surgical History No history of previous surgery Social History household members: spouse and children number of children: 1 current occupational status: employed 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) history of recent travel: Yes details: [place] - returned 01/23/23 out of state: Yes out of country: No Smoking Status: Never smoker alcohol intake: never substance use type: does not use diet: gluten free caffeine: Yes (occasionally) what type of physical activity do you participate in: none seatbelt use: always do you feel safe at home: Yes EXAM Physical Exam Const Vital Signs: 05/31/23 15:37 05/31/23 16:00 05/31/23 15:47 Temperature 98 F Temperature Source Temporal Pulse Rate 85 Respiratory Rate 18 Respiratory Effort Normal Respiratory Pattern Normal Blood Pressure 140/90 H Blood Pressure Mean 106 Pulse Ox 100 Oxygen Delivery Method Room Air Room Air 05/31/23 16:10 05/31/23 16:20 05/31/23 16:30 Temperature Temperature Source Pulse Rate 79 78 77 Respiratory Rate 21 H 20 H 20 H Respiratory Effort Respiratory Pattern Blood Pressure 128/77 H Blood Pressure Mean 90 Pulse Ox 99 99 99 Oxygen Delivery Method Room Air 05/31/23 16:40 Temperature Temperature Source Pulse Rate 73 Respiratory Rate 20 H Respiratory Effort Respiratory Pattern Blood Pressure Blood Pressure Mean Pulse Ox 99 Oxygen Delivery Method MDM MDM [facility] Narrative Medical decision making narrative: HISTORY OF PRESENT ILLNESS: 23-year-old female here with concern for nearly passing out. States approximately noon she had an episode of near syncope. States she had a vaginal livery on 05/20. Per the patient's she has history of thrombocytopenia her platelets normally at 100. She states she was at the grocery store and felt faint, lightheaded dizzy this lasted for approximately 10 minutes. She not lose consciousness. She had no associated headache, neck pain, chest pain, shortness of breath, abdominal pain. She notes she continues to spot after but denies any heavy vaginal bleeding or clotting. She denies any history of blood clots, no PE risk factors. Denies any family history of early cardiac . Denies any personal history of passing out. REVIEW OF SYSTEMS: Pertinent positives: Near syncope Pertinent negatives: Headache, chest pain, abdominal pain PHYSICAL EXAM: Nursing triage notes reviewed, Vital signs reviewed Constitutional: please see mdm HENT: MMM Eyes: Pupils equal round and reactive to light, Extraocular muscles intact Neck: No stridor, no JVD, full neck ROM Lungs: Clear to auscultation, No wheezing or rales. No increased work of breathing, no conversational dyspnea, no accessory muscle use, no nasal flaring. No respiratory distress noted Heart: Regular rate and rhythm, No murmurs, No rubs and No gallops, 2+ distal pulses (radial, femoral, posterior tibial) in all extremities Abdomen: Soft, there is no tenderness, rigidity, rebound or guarding, no obvious peritoneal signs, no palpable pulsatile abdominal masses, no auscultated abdominal bruit : No CVAT Extremities: No edema Neuro: Alert and oriented x3, neuro exam at baseline, cranial nerves II through XII are intact. No pain with extraocular muscle movement. There is negative test of skew. 5 of 5 strength in upper and lower extremities in flexion extension. Intact sensation to light touch in upper and lower extremity dermatomes. No truncal or extremity ataxia. No dysdiadochokinesia. Normal gait. 2+ reflexes in upper and lower extremities. No meningeal signs. Negative Babinski. NIH of 0. Skin: Slight skin pallor noted (stable per patient and ) MEDICAL DECISION MAKING: Chief Complaint: Near syncope External records reviewed: [No recent echocardiograms noted Factors affecting care: recent vaginal delivery, thrombocytopenia affecting Social determinants of health: none History obtained from others: none Consults: none [facility] Narrative: Patient was hemodynamically stable, afebrile, nontoxic-appearing. Exam I considered the following differential diagnosis: Arrhythmia, anemia, severe thrombocytopenia, electrode abnormality, dehydration I obtained a broad lab and imaging work-up to further elucidate the etiology of the patient's complaints. ALL IMAGES (IF OBTAINED) HAVE BEEN PERSONALLY REVIEWED AND INTERPRETED BY MYSELF. EKG with normal sinus rhythm, normal axis, normal intervals, no STEMI CBC without leukocytosis, there is no anemia and factors hemoconcentration suggestive of dehydration, there is thrombocytopenia however this is similar im proved from baseline per patient and family report Troponin is negative, no evidence of myocardial ischemia BMP without evidence of significant electrolyte abnormalities, no anion gap, no acute kidney injury. I have personally reviewed the patient's chest x-ray. Chest x-ray is unremarkable for pulmonary edema, pneumothorax, pneumonia or focal cardiopulmonary abnormality. The evaluation of the patient's labs images show no evidence of life-limiting etiology. patient was rehydrated with 1 L normal saline. Noted improvement. Appropriate discharge home with close outpatient follow-up for further evaluation including Holter monitoring and echocardiogram. The patient and/or family, caregivers express understanding. The patient and/or family, caregivers agrees with the plan. Shared decision making: I will have a discussion with the patient and or visitors regarding risk/benefits of further testing or admission. They will be made aware of of the risk/benefits inherent in this decision they will be given the opportunity to voice understanding. Total critical care time today provided was at least 0 minutes. This excludes separately billable procedures. Critical care time (if documented) is secondary to the patient having high probability of clinically significant/life threatening deterioration in the patient's condition which required my urgent intervention. Impression: 1. Near syncope 2. Dehydration 3. Thrombocytopenia Dispo: Discharge Lab Data Labs: Laboratory Results - last 24 hr 05/31/23 16:03 WBC 8.3 RBC 5.24 Hgb 16.2 H Hct 50.8 H MCV 96.9 MCH 30.9 MCHC 31.9 L RDW Std Deviation 43.3 RDW Coeff of Fredy 12.0 Plt Count 146 L MPV 11.4 Immature Gran % (Auto) 0.500 Neut % (Auto) 75.3 H Lymph % (Auto) 18.7 L Page % (Auto) 4.5 Eos % (Auto) 0.5 Baso % (Auto) 0.5 Absolute Neuts (auto) 6.3 Absolute Lymphs (auto) 1.55 Nucleated RBC % 0 Sodium 139 Potassium 4.1 Chloride 106 Carbon Dioxide 26.0 Anion Gap 7 BUN 14 Creatinine 0.86 Estim Creat Clear Calc 93.61 Est GFR (MDRD) Af Amer 103 Est GFR (MDRD) Non-Af 85 BUN/Creatinine Ratio 16.3 Glucose 151 H Calcium 9.0 Troponin I High Sens 8 Radiography Diagnostic Testing: Clinical Impression(s) from Imaging Studies Chest X-Ray 05/31/23 15:50 IMPRESSION: Normal x-ray examination of the chest. Electronically Signed: Bijan Joe MD at 16:13 EDT Reading Location ID and State: [facility] / [place] Tel , Service support , Discharge Plan Triage Chief Complaint: Syncope ED Provider: Paul Martell Dx/Rx/DC Orders Instructions: ED Dizziness or Syncope ... Prescriptions: No Action prenat.vits,chris,[id number] Tablet 1 tab PO DAILY ferrous sulfate 325 mg (65 mg iron) tablet 325 mg PO Q OTHER DAY folic acid 1 mg tablet 1 mg PO DAILY Primary Care Provider: Care Physician,No Primary Referrals: Kelsi Rosenthal [employer], [employer] [Non-Staff] - Activity Restrictions/Additional Instructions: Thank you for trusting us with your care today! Please take Tylenol (2 pills, 650 mg), ibuprofen (2 pills, 400 mg) every 6 hours as needed for pain and fever control. Please return to the emergency department if your symptoms change or worsen. Specifically develop loss of conscious, chest pain, feeling her heart racing, if you develop focal loss of sensation, numbness, slurred speech or visual changes. Please follow with your primary care physician for further outpatient evaluation and management. Disposition Disposition: Home, Self Care
--- NOTE | 2023-05-31 15:50 | RAD_ITS ---
STUDY: X-RAY CHEST REASON FOR EXAM: Female, 23 years old. chest pain TECHNIQUE: AP portable COMPARISON: None. FINDINGS: The lungs are clear and expanded. There is no demonstrated pleural abnormality. Normal size heart. Normal mediastinum and troy. Normal visualized pulmonary arteries. Normal visualized aortic arch and descending thoracic aorta. Normal visualized thoracic spine. Normal visualized ribs, clavicles, and shoulders. There is no demonstrated abnormality of the visualized soft tissue structures of the upper abdomen. RAD/Chest 1 View (Portable) IMPRESSION: Normal x-ray examination of the chest. Electronically Signed: Bijan Joe MD at 16:13 EDT ,
[2023-05-31] MEDS: 0.9% Normal Saline (1000mL) 1,000 ML 1000 ML IV (16:02)
[2023-05-31 16:16] LABS: Absolute Lymphocyte Count 1.55 X10^3/uL (0.83-4.51); Absolute Neutrophil Count 6.3 X10^3/uL (2.0-7.7); Basophil# 0.04 X10^3/uL; Basophil% 0.5 % (0-1); Eosinophil# 0.04 X10^3/uL; Eosinophils% 0.5 % (0-5); Hematocrit 50.8 % (37-47); Hemoglobin 16.2 g/dL (12.0-15.0); Lymphocyte # 1.55 X10^3/ul (0.83-4.51); Lymphocyte % 18.7 % (19-41); Mean Corp Hgb Conc 31.9 g/dL (32-36); Mean Corpuscular Hgb 30.9 pg (27.0-32.0); Mean Corpuscular Volume 96.9 fL (81-99); Mean Platelet Vol. 11.4 fl (6.2-12.0); Monocyte# 0.37 X10^3/uL; Monocyte% 4.5 % (0-10); NRBC Flagged by Analyzer 0 % (0-5); Neutrophil # 6.25 X10^3/uL (2.7-7.7); Neutrophil % 75.3 % (47-70); Platelet Count 146 K/mm3 (150-450); RBC Distribution Width SD 43.3 fl (35.1-43.9); Red Blood Count 5.24 M/mm3 (4.2-5.4); White Blood Count 8.3 K/mm3 (4.4-11.0)
[2023-05-31 16:42] LABS: Anion Gap 7 (5-15); BUN 14 mg/dL (7-18); BUN/Creat Ratio 16.3 RATIO (10-20); Chloride 106 mmol/L (98-107); Creatinine, Serum 0.86 mg/dL (0.55-1.02); EST Glomerular Filtration Rate 85 mL/min (>60); Est Glom Filt Rate - Afr Amer 103 mL/min (>60); Estimated Creatinine Clearance 93.61 ml/min; Glucose 151 mg/dL (74-106); Potassium 4.1 mmol/L (3.5-5.1); Sodium Level 139 mmol/L (136-145); Troponin-I HS (w/2H Reflex) 8 pg/mL (3.0-54.0)
[2023-05-31 18:09] LABS: Reflex Troponin-HS? (from REC) Y
[2023-05-31 18:45] LABS: Troponin-I HS 7 pg/mL (3.0-54.0)
== END 2023-05-31 19:20 | disposition home or self-care (01) ==
PROVIDERS: Emergency Provider Emergency Medicine; Visit Provider Emergency Medicine
DX: E86.0 Dehydration (principal); D69.6 Thrombocytopenia, unspecified; R55 Syncope and collapse
CPT/HCPCS: 71045; 80048; 84484; 85025; 93005; 96360; 99284